=== PATIENT | female | born 1995 | race Caucasian/White ===

== ENCOUNTER 2016-08-18 09:28 | Emergency (ER) | payer MEDICAID ==
--- NOTE | 2016-08-18 10:29 | ER NURSING DOCUMENTATION ---
Nurse's Notes [facility] Name:Deuce De Los Santos Age:21 yrs Sex:Female :1995 Arrival Date:08/18/2016 Time:09:28 Bed1 Private MD: Diagnosis:Influenza Presentation: 08/18 09:30 Presenting complaint: Presenting complaint: Patient states: pt states she has been sick st since Monday with N, dizziness, body aches, sore throat and a fever on and off. 09:43 Acuity: RAMON 3 st 09:48 Transition of care: Home. st 09:48 Method Of Arrival: Private Vehicle st Triage Assessment: 09:30 General: Appears in no apparent distress, Behavior is cooperative. Pain: Complains of st pain in body aches, headache and sore throat Pain currently is 1 out of 10 on a pain scale. Pain began 5 days. Neuro: No deficits noted. Cardiovascular: tachy. Respiratory: No deficits noted. GI: Abdomen is non- distended Abd is soft and non tender X 4 quads. Reports nausea, Denies vomiting. Historical: - Allergies: No known drug Allergies; - Home Meds: 1. probiotics 2. Fish Oil oral 3. luminis (an hurbal remidy for hair health) - PMHx: None; - PSHx: wisdom teeth removed; - Tetanus: unknown Other pt is not even sure if she has ever had one. - Ebola Screening: : Patient denies exposure to infectious person. Patient denies travel to an Ebola-affected area in the 21 days before illness onset. . - Immunization history: Flu Vaccine None. - Social history: Smoking status: Patient states was never smoker of tobacco. Patient/guardian denies using alcohol, marijuana. Screenin:53 Infectious Disease Risk None. Abuse screen: Denies threats or abuse. Denies injuries st from another. pt feels safe at home. Vital Signs: 09:30 BP 130 / 87; Pulse 105; Resp 18; Temp 98.7; Pulse Ox 92% on R/A; Pain 1/10; st ED Course: 09:33 Patient arrived in ED. ama 09:43 Shelly Yancey, RN is Primary Nurse. st 09:[address] 09:[address] 09:45 Den Ramos MD is Attending Physician. atul 09:53 Valuables Remains with patient Patient has correct armband on for positive st identification. Bed in low position. Administered Medications: No medications were administered Outcome: 10: Discharge ordered by . 10: Discharged to home ambulatory. st 10:28 Condition: stable 10:28 Discharge instructions given to patient, Instructed on discharge instructions, follow up and referral plans. medication usage. 10:28 Patient [address] the ED. st 08/19 10:11 Discharge F/U Call: Unable to reach: no answer st Signatures: Shelly Yancey, RN RN Den Pastrana MD MD jm Averdick, Andrew, Reg Reg ama
--- NOTE | 2016-08-18 10:29 | ER PHYSICIAN DOCUMENTATION ---
Physician Documentation [facility] Name:Deuce De Los Santos Age:21 yrs Sex:Female :1995 Arrival Date:08/18/2016 Time:09:28 Bed1 Private MD: Den Trujillo Disposition: 08/18/16 10:22 Discharged to Home/Self Care. Impression: Influenza. - Condition is Good. - Discharge Instructions: INFLUENZA (Adult). - Medical Reconciliation form form. - Follow up: Private Physician; When: As needed; Reason: Continuance of care. - Problem is new. - Symptoms have improved. HPI: 08/18 11:13 This 21 yrs old Female presents to ER via Private Vehicle with complaints of jm Nausea, Dizziness. 11:13 The patient presents to the emergency department with nausea. Associated signs and jm symptoms: Pertinent positives: fever, body aches. The patient has not experienced similar symptoms in the past. Historical: - Allergies: No known drug Allergies; - Home Meds: 1. probiotics 2. Fish Oil oral 3. luminis (an hurbal remidy for [employer] health) - PMHx: None; - PSHx: wisdom teeth removed; - Tetanus: unknown Other pt is not even sure if she has ever had one. - Ebola Screening: : Patient denies exposure to infectious person. Patient denies travel to an Ebola-affected area in the 21 days before illness onset. . - Immunization history: Flu Vaccine None. - Social history: Smoking status: Patient states was never smoker of tobacco. Patient/guardian denies using alcohol, marijuana. ROS: 11:13 Constitutional: Positive for body aches, chills, fatigue, fever, malaise. jm 11:13 ENT: Positive for sore throat. 11:13 Respiratory: Positive for cough. 11:13 Abdomen/GI: Positive for nausea. 11:13 Neuro: Positive for dizziness. Exam: 11:13 Constitutional: The patient appears alert, awake, comfortable. jm 11:13 ENT: Mouth: Oral mucosa: normal, Posterior pharynx: swelling, is not appreciated, erythema, that is moderate, exudate, is not appreciated. 11:13 Cardiovascular: Rate: tachycardic, Rhythm: regular. 11:13 Respiratory: Respirations: normal, Breath sounds: are normal. 11:13 Abdomen/GI: Bowel sounds: normal, Palpation: abdomen is soft and non-tender. Vital Signs: 09:30 BP 130 / 87; Pulse 105; Resp 18; Temp 98.7; Pulse Ox 92% on R/A; Pain 1/10; st MDM: 09:45 Patient medically screened. atul 11:14 Differential diagnosis: Influenza. Data reviewed: vital signs, nurses notes, lab test jm result(s), and as a result, I will discharge patient. Counseling: I had a detailed discussion with the patient and/or guardian regarding: the historical points, exam findings, and any diagnostic results supporting the discharge/admit diagnosis, lab results, the need for outpatient follow up, with the patient's primary care provider. ED course: Pt already 5 days into the flu, so no tamiflu was given. DC home. . 06 10:10 Order name: INFLUENZA A/B; Complete Time: 10:21 EDMS Dispensed Medications: No medications were administered Signatures: Shelly Yancey, RN Den Thomas MD MD jm
== END 2016-08-18 10:28 | disposition home or self-care (01) ==
LOC: ER 09:28
DX: J11.1 Influenza due to unidentified influenza virus with other respiratory manifestations (principal)
CPT/HCPCS: 87449; 99281